=== PATIENT | male | born 1930 | race Caucasian/White ===

== ENCOUNTER 2017-10-16 07:35 | Inpatient (IN) | payer OTHER, MEDICAID ==
[2017-10-16] MEDS: FUROSEMIDE 40 MG INJ IV (07:47)
[2017-10-16] MEDS: ASPIRIN 81 MG TAB PO (07:47)
[2017-10-16] MEDS: NITROGLYCERIN 2% 1 GM OINT PKT TD (07:48)
[2017-10-16 07:53] LABS: ADD MAN DIFF? NO
[2017-10-16 07:54] LABS: WHITE BLOOD COUNT 8.2 10^3/ul (4.8-10.8)
[2017-10-16 07:54] LABS: BASOPHIL # 0.1 10^3/ul (0.0-0.1); BASOPHILS % 0.9 % (0.0-2.0); EOSINOPHILS # 0.1 10^3/ul (0.0-0.5); EOSINOPHILS % 1.6 % (0.0-7.0); HEMATOCRIT 42.2 % (42.0-52.0); HEMOGLOBIN 13.7 g/dl (14.0-18.0); LYMPHOCYTES # 1.7 10^3/ul (0.8-2.9); MEAN CORPUSCULAR HEMOGLOBIN 32.3 pg (29.0-33.0); MEAN CORPUSCULAR HGB CONC 32.5 g/dl (32.0-37.0); MEAN CORPUSCULAR VOLUME 99.5 fl (82.0-101.0); MONOCYTE # 0.7 10^3/ul (0.3-0.9); MONOCYTES % 8.6 % (0.0-11.0); NEUTROPHIL # 5.6 10^3/ul (1.6-7.5); NEUTROPHILS % 68.3 % (39.0-77.0); PLATELET COUNT 186 10^3/UL (140-415); RED BLOOD COUNT 4.24 10^6/ul (4.70-6.10); RED CELL DISTRIBUTION WIDTH 13.9 % (11.5-14.5)
[2017-10-16 08:17] LABS: ANION GAP 19 (8-16); BLOOD UREA NITROGEN 17 mg/dl (7-20); CALCIUM 8.6 mg/dl (8.4-10.2); CARBON DIOXIDE 25 mmol/L (21-31); CHLORIDE 105 mmol/L (97-110); CREATININE 0.99 mg/dl (0.61-1.24); GLUCOSE 215 mg/dl (70-220); POTASSIUM 4.8 mmol/L (3.5-5.1); SODIUM 144 mmol/L (135-144)
[2017-10-16 08:18] LABS: CREATINE KINASE 40 IU/L (23-200)
[2017-10-16 08:27] LABS: INR 1.03; PROTIME 13.6 Sec (11.9-14.9); PT RATIO 1.1
[2017-10-16 08:28] LABS: PARTIAL THROMBOPLASTIN TIME 26.5 Sec (25.0-35.0)
[2017-10-16 08:29] LABS: TROPONIN-I 0.051 ng/ml (0.00-0.12)
[2017-10-16 08:30] LABS: CK INDEX 3.4
[2017-10-16 08:39] LABS: CK-MB 1.37 ng/ml (0.0-2.4)
[2017-10-16] MEDS ORDERED: ACETAMINOPHEN 325 MG TAB PO ×2 (09:30→10:30)
[2017-10-16] MEDS ORDERED: ONDANSETRON 4 MG INJ IV ×2 (09:30→10:30)
[2017-10-16] MEDS ORDERED: BISACODYL (EC) 5 MG TAB PO (10:30)
[2017-10-16] MEDS ORDERED: NACL 0.9% 3 ML SYG IV (10:30)
[2017-10-16] MEDS ORDERED: morphine 2 MG INJ IV (10:30)
[2017-10-16] MEDS ORDERED: NITROGLYCERIN (SL) 0.4 MG TAB SL (10:30)
[2017-10-16] MEDS ORDERED: HYDROCODONE/APAP (5/325) TAB PO (10:30)
[2017-10-16] MEDS ORDERED: MAGNESIUM HYDROXIDE 30ML CUP PO (10:30)
[2017-10-16] MEDS: AZITHROMYCIN 500MG/NS (PMX) 250 ML IV (10:35)
[2017-10-16] MEDS: CEFTRIAXONE 1 GM/50 ML (PMX) 50 ML IVPB (10:35)
[2017-10-16 10:50] LABS: LACTIC ACID 1.2 mmol/L (0.5-2.0)
[2017-10-16 11:17] LABS: B-TYPE NATRIURETIC PEPTIDE 9090 PG/ML (0-450)
[2017-10-16 14:05] LABS: LACTIC ACID 1.5 mmol/L (0.5-2.0)
[2017-10-16] MEDS: BUDESONIDE (NEB) 0.5MG/2ML AMP HHN ×2 (14:10→21:31)
[2017-10-16] MEDS: ALBUTEROL/IPRATROPIUM (NEB) 3 ML AMP HHN ×2 (14:10→21:31)
[2017-10-16] MEDS: predniSONE 20 MG TAB PO (14:25)
[2017-10-16] MEDS: LISINOPRIL 5 MG TAB PO (14:25)
[2017-10-16] MEDS: LEVOFLOXACIN 500MG/D5W (PMX) 100 ML IVPB (14:27)
[2017-10-16] MEDS: DIGOXIN 500 MCG INJ IV (14:27)
[2017-10-16 15:21] LABS: LACTIC ACID 1.1 mmol/L (0.5-2.0)
[2017-10-16 18:46] LABS: AADO2 Arterial 72.9 mmHg (7.0-24.0); Allen Test ACCEPTAB; Arterial Base Excess 2.6 mmol/L (-3.0-3); Arterial Blood Gas Oxygen Sat 96.1 mmHG (95.0-100.0); Arterial COHb 0.7 % (0.0-3.0); Arterial Fraction of Oxyhgb 95.1 % (93.0-99.0); Arterial HCO3 25.8 mmol/L (22.0-26.0); Arterial MetHb 0.3 % (0.0-1.5); Arterial Total Hemglobin 13.4 g/dl (12.0-18.0); MODE NASAL CANNULA; Site Right Radial
[2017-10-16] MEDS: LORAZEPAM 0.5 MG TAB PO (19:39)
[2017-10-16 21:08] LABS: CREATINE KINASE 40 IU/L (23-200)
[2017-10-16] MEDS: FUROSEMIDE 20 MG INJ IV (21:15)
[2017-10-16] MEDS: ATORVASTATIN 10 MG TAB PO (21:15)
[2017-10-16 21:18] LABS: CK INDEX 4.1; CK-MB 1.65 ng/ml (0.0-2.4); TROPONIN-I 0.049 ng/ml (0.00-0.12)
[2017-10-17] MEDS: LORAZEPAM 0.5 MG TAB PO ×2 (00:54→16:38)
[2017-10-17] MEDS: ZOLPIDEM 5 MG TAB PO (02:09)
[2017-10-17] MEDS: PANTOPRAZOLE (EC) 40 MG TAB PO (06:01)
[2017-10-17] MEDS: FUROSEMIDE 20 MG INJ IV ×2 (06:04→17:33)
[2017-10-17 06:06] LABS: ADD MAN DIFF? NO
[2017-10-17 06:17] LABS: BASOPHILS % 0.1 % (0.0-2.0); HEMATOCRIT 37.2 % (42.0-52.0); HEMOGLOBIN 12.3 g/dl (14.0-18.0); LYMPHOCYTES # 0.7 10^3/ul (0.8-2.9); LYMPHOCYTES % 8.7 % (15.0-51.0); MEAN CORPUSCULAR HEMOGLOBIN 31.9 pg (29.0-33.0); MEAN CORPUSCULAR HGB CONC 33.1 g/dl (32.0-37.0); MEAN CORPUSCULAR VOLUME 96.4 fl (82.0-101.0); MONOCYTE # 0.5 10^3/ul (0.3-0.9); MONOCYTES % 5.7 % (0.0-11.0); PLATELET COUNT 157 10^3/UL (140-415); RED BLOOD COUNT 3.86 10^6/ul (4.70-6.10); RED CELL DISTRIBUTION WIDTH 13.8 % (11.5-14.5)
[2017-10-17 06:17] LABS: WHITE BLOOD COUNT 8.2 10^3/ul (4.8-10.8)
[2017-10-17 06:42] LABS: ALANINE AMINOTRANSFERASE 32 IU/L (13-69); ALBUMIN 3.1 g/dl (3.3-4.9); ALBUMIN/GLOBULIN RATIO 1.14; ALKALINE PHOSPHATASE 77 IU/L (42-121); ANION GAP 15 (8-16); ASPARTATE AMINO TRANSFERASE 15 IU/L (15-46); BILIRUBIN,INDIRECT 0.5 mg/dl (0-1.1); BILIRUBIN,TOTAL 0.5 mg/dl (0.2-1.3); BLOOD UREA NITROGEN 26 mg/dl (7-20); CALCIUM 8.4 mg/dl (8.4-10.2); CARBON DIOXIDE 28 mmol/L (21-31); CHLORIDE 105 mmol/L (97-110); CHOL/HDL RATIO 3.6 RATIO; CHOLESTEROL 129 mg/dl (100-200); CREATININE 1.04 mg/dl (0.61-1.24); GLUCOSE 105 mg/dl (70-220); HDL CHOLESTEROL 35 mg/dl (31-75); LDL CHOLESTEROL,CALCULATED 83 mg/dl; MAGNESIUM 1.8 mg/dl (1.7-2.5); POTASSIUM 4.1 mmol/L (3.5-5.1); SODIUM 144 mmol/L (135-144); TOTAL PROTEIN 5.8 g/dl (6.1-8.1); TRIGLYCERIDES 55 mg/dl (0-149)
[2017-10-17] MEDS: ALBUTEROL/IPRATROPIUM (NEB) 3 ML AMP HHN ×3 (08:21→19:52)
[2017-10-17] MEDS: BUDESONIDE (NEB) 0.5MG/2ML AMP HHN ×2 (08:26→19:58)
[2017-10-17] MEDS: predniSONE 20 MG TAB PO (09:12)
[2017-10-17] MEDS: ASPIRIN 81 MG TAB PO (09:12)
[2017-10-17] MEDS: CLOPIDOGREL 75 MG TAB PO (09:12)
[2017-10-17] MEDS: LEVOFLOXACIN 500MG/D5W (PMX) 100 ML IVPB (10:46)
[2017-10-17] MEDS ORDERED: ZOLPIDEM 5 MG TAB PO (12:30)
[2017-10-17] MEDS: LORAZEPAM 1 MG TAB PO (21:30)
[2017-10-17] MEDS: ATORVASTATIN 10 MG TAB PO (21:34)
[2017-10-18] MEDS: PANTOPRAZOLE (EC) 40 MG TAB PO (05:59)
[2017-10-18] MEDS: FUROSEMIDE 20 MG INJ IV ×2 (05:59→18:41)
[2017-10-18 08:58] LABS: ADD MAN DIFF? NO; BASOPHILS % 0.1 % (0.0-2.0); EOSINOPHILS % 0.1 % (0.0-7.0); HEMATOCRIT 40.1 % (42.0-52.0); HEMOGLOBIN 13.4 g/dl (14.0-18.0); LYMPHOCYTES # 1.6 10^3/ul (0.8-2.9); LYMPHOCYTES % 11.1 % (15.0-51.0); MEAN CORPUSCULAR HEMOGLOBIN 32.2 pg (29.0-33.0); MEAN CORPUSCULAR HGB CONC 33.4 g/dl (32.0-37.0); MEAN CORPUSCULAR VOLUME 96.4 fl (82.0-101.0); MEAN PLATELET VOLUME 10.3 fl (7.4-10.4); MONOCYTES % 6.8 % (0.0-11.0); NEUTROPHILS % 81.4 % (39.0-77.0); PLATELET COUNT 190 10^3/UL (140-415); RED BLOOD COUNT 4.16 10^6/ul (4.70-6.10); RED CELL DISTRIBUTION WIDTH 14.2 % (11.5-14.5)
[2017-10-18 08:58] LABS: WHITE BLOOD COUNT 14.7 10^3/ul (4.8-10.8)
[2017-10-18] MEDS: ALBUTEROL/IPRATROPIUM (NEB) 3 ML AMP HHN ×4 (08:59→19:37)
[2017-10-18] MEDS: predniSONE 20 MG TAB PO (09:06)
[2017-10-18] MEDS: ASPIRIN 81 MG TAB PO (09:06)
[2017-10-18] MEDS: CLOPIDOGREL 75 MG TAB PO (09:06)
[2017-10-18] MEDS: BUDESONIDE (NEB) 0.5MG/2ML AMP HHN ×2 (09:13→19:48)
[2017-10-18] MEDS: LORAZEPAM 0.5 MG TAB PO (09:29)
[2017-10-18 09:36] LABS: ANION GAP 17 (8-16); BLOOD UREA NITROGEN 26 mg/dl (7-20); CARBON DIOXIDE 32 mmol/L (21-31); CHLORIDE 99 mmol/L (97-110); CREATININE 1.02 mg/dl (0.61-1.24); GLUCOSE 114 mg/dl (70-220); MAGNESIUM 1.8 mg/dl (1.7-2.5); PHOSPHORUS 3.5 mg/dl (2.5-4.9); POTASSIUM 3.5 mmol/L (3.5-5.1); SODIUM 144 mmol/L (135-144)
[2017-10-18] MEDS: LEVOFLOXACIN 500MG/D5W (PMX) 100 ML IVPB (11:42)
[2017-10-18] MEDS: APIXABAN 5 MG TABLET PO (21:28)
[2017-10-18] MEDS: LORAZEPAM 1 MG TAB PO (21:28)
[2017-10-18] MEDS: ATORVASTATIN 10 MG TAB PO (21:28)
[2017-10-19] MEDS: PANTOPRAZOLE (EC) 40 MG TAB PO (06:37)
[2017-10-19 07:45] LABS: ADD MAN DIFF? NO
[2017-10-19] MEDS: ALBUTEROL/IPRATROPIUM (NEB) 3 ML AMP HHN ×3 (08:02→20:20)
[2017-10-19] MEDS: BUDESONIDE (NEB) 0.5MG/2ML AMP HHN ×2 (08:02→20:00)
[2017-10-19 08:17] LABS: BASOPHILS % 0.2 % (0.0-2.0); EOSINOPHILS % 0.1 % (0.0-7.0); HEMOGLOBIN 13.1 g/dl (14.0-18.0); LYMPHOCYTES # 1.4 10^3/ul (0.8-2.9); LYMPHOCYTES % 10.7 % (15.0-51.0); MEAN CORPUSCULAR HEMOGLOBIN 31.8 pg (29.0-33.0); MEAN CORPUSCULAR HGB CONC 33.6 g/dl (32.0-37.0); MEAN CORPUSCULAR VOLUME 94.7 fl (82.0-101.0); MONOCYTES % 7.6 % (0.0-11.0); NEUTROPHIL # 10.6 10^3/ul (1.6-7.5); NEUTROPHILS % 80.9 % (39.0-77.0); PLATELET COUNT 179 10^3/UL (140-415); RED BLOOD COUNT 4.12 10^6/ul (4.70-6.10); RED CELL DISTRIBUTION WIDTH 13.8 % (11.5-14.5)
[2017-10-19 08:17] LABS: WHITE BLOOD COUNT 13.1 10^3/ul (4.8-10.8)
[2017-10-19 08:28] LABS: ALBUMIN 3.3 g/dl (3.3-4.9); ANION GAP 14 (8-16); BLOOD UREA NITROGEN 31 mg/dl (7-20); CALCIUM 8.8 mg/dl (8.4-10.2); CARBON DIOXIDE 31 mmol/L (21-31); CHLORIDE 101 mmol/L (97-110); CREATININE 0.92 mg/dl (0.61-1.24); GLUCOSE 98 mg/dl (70-220); MAGNESIUM 1.7 mg/dl (1.7-2.5); PHOSPHORUS 3.1 mg/dl (2.5-4.9); POTASSIUM 3.9 mmol/L (3.5-5.1); SODIUM 142 mmol/L (135-144)
[2017-10-19] MEDS: predniSONE 20 MG TAB PO (08:54)
[2017-10-19] MEDS: APIXABAN 5 MG TABLET PO ×2 (08:55→20:40)
[2017-10-19] MEDS: CLOPIDOGREL 75 MG TAB PO (08:56)
[2017-10-19] MEDS: FUROSEMIDE 40 MG TAB PO (08:56)
[2017-10-19 08:59] LABS: ANION GAP 13 (8-16); BLOOD UREA NITROGEN 31 mg/dl (7-20); CALCIUM 8.8 mg/dl (8.4-10.2); CARBON DIOXIDE 31 mmol/L (21-31); CHLORIDE 102 mmol/L (97-110); CREATININE 0.92 mg/dl (0.61-1.24); GLUCOSE 99 mg/dl (70-220); POTASSIUM 3.9 mmol/L (3.5-5.1); SODIUM 142 mmol/L (135-144)
[2017-10-19] MEDS: LORAZEPAM 0.5 MG TAB PO (09:53)
[2017-10-19] MEDS: LEVOFLOXACIN 500MG/D5W (PMX) 100 ML IVPB (12:25)
[2017-10-19] MEDS: MAGNESIUM SULFATE 2 GM/50 ML 50 ML IVPB (15:29)
[2017-10-19] MEDS: LORAZEPAM 1 MG TAB PO (20:39)
[2017-10-19] MEDS: ATORVASTATIN 10 MG TAB PO (20:40)
[2017-10-20] MEDS ORDERED: ASPIRIN (EC) 81 MG TAB PO (09:00)
== END 2017-10-19 20:49 | disposition home health service (06) | DRG 291 ==
LOC: E/R 07:35 → MS4 09:17
PROC: 4A033R1 Measurement of Arterial Saturation, Peripheral, Percutaneous Approach (ICD-10-PCS; principal; 2017-10-16)
DX: I11.0 Hypertensive heart disease with heart failure (principal); J18.9 Pneumonia, unspecified organism; J96.01 Acute respiratory failure with hypoxia; J44.0 Chronic obstructive pulmonary disease with (acute) lower respiratory infection; I49.5 Sick sinus syndrome; I48.0 Paroxysmal atrial fibrillation; I42.9 Cardiomyopathy, unspecified; J44.1 Chronic obstructive pulmonary disease with (acute) exacerbation; I35.0 Nonrheumatic aortic (valve) stenosis; I50.23 Acute on chronic systolic (congestive) heart failure; K40.90 Unilateral inguinal hernia, without obstruction or gangrene, not specified as recurrent; F17.210 Nicotine dependence, cigarettes, uncomplicated; I25.10 Atherosclerotic heart disease of native coronary artery without angina pectoris; F41.9 Anxiety disorder, unspecified; I25.2 Old myocardial infarction; N50.89 Other specified disorders of the male genital organs; E78.00 Pure hypercholesterolemia, unspecified; Z95.5 Presence of coronary angioplasty implant and graft
CPT/HCPCS: 36415; 36600; 71045; 76870; 80048; 80053; 80061; 80069; 82550; 82553; 82803; 83605; 83735; 83880; 84100; 84443; 84484; 85025; 85610; 85730; 87040; 93005; 93306; 93970; 94640; 94660; 94664; 96365; 96366; 96375; 99291-25; J1940